=== PATIENT | male | born 1970 | race Caucasian/White ===

== ENCOUNTER → 2020-10-29 08:32 | Outpatient (CLI) | payer OTHER, SELFPAY ==
[2020-10-29] MEDS: COVID-19 VACC, Ad26(JANSSEN)/PF 0.5 ML IM (08:43)
== END ==
PROVIDERS: Visit Provider Internal Medicine
DX: Z23 Encounter for immunization (principal)
CPT/HCPCS: 0031A; 91303

== ENCOUNTER → 2022-01-06 13:52 | Outpatient (CLI) | payer OTHER, SELFPAY ==
[2022-01-06 15:10] LABS: Liquefaction Semen YES (YES); PH Semen 8 (7-8); Sperm Count 17 x10^6/mL (20-150); Volume Semen 4.5 (1.0-5.0)
[2022-01-06 15:11] LABS: Sperm Morphology 14 %ABNORM (0-30); Sperm Motility 75% % Motile
== END ==
PROVIDERS: Referring Provider Specialist; Visit Provider Specialist
DX: Z31.69 Encounter for other general counseling and advice on procreation (principal)
CPT/HCPCS: 89320

== ENCOUNTER → 2022-09-30 13:39 | Outpatient (CLI) | payer OTHER, SELFPAY ==
--- NOTE | 2022-09-30 | DI.RAD.S_ITS ---
PROCEDURE: XR CHEST 2V INDICATIONS: CHEST PAIN TECHNIQUE: 2 views of the chest were acquired. COMPARISON: None. FINDINGS: Surgical changes and devices: None. Lungs and pleura: Lungs are clear. No pleural effusions or pneumothorax. Mediastinum: Mediastinal contours are normal. Heart size is normal. Bones and chest wall: No suspicious bony abnormalities. Soft tissues appear unremarkable. IMPRESSION: No acute cardiopulmonary disease. Dictated by: Milana Kaplan M.D. on 09/30/2022 at 22:51 Approved by: Milana Kaplan M.D. on 09/30/2022 at 22:52
== END ==
PROVIDERS: PCP Internal Medicine; Referring Provider Internal Medicine; Visit Provider Internal Medicine
DX: R07.9 Chest pain, unspecified (principal)
CPT/HCPCS: 71046

== ENCOUNTER → 2022-10-05 07:24 | Outpatient (CLI) | payer OTHER, SELFPAY ==
--- NOTE | 2022-10-06 18:17 | DI.NM.S_ITS ---
DATE OF SERVICE: 10/05/2022 PROCEDURE: Exercise perfusion study INDICATIONS: Chest pain, hyperlipidemia. RADIOPHARMACEUTICAL: 25.5 mCi technetium-99m Myoview IV was injected at stress and 25.7 mCi technetium-99m Myoview IV was injected at rest. CARDIAC STRESS: The patient underwent exercise perfusion study under the supervision of an attending staff. The patient walked on Jayesh protocol for 9 minutes and 31 seconds, achieved 101 percent of target heart rate with maximum heart rate of 172 beats per minute. Normal blood pressure response. Resting blood pressure 106/80 mmHg. Peak blood pressure 142/72 mmHg. Achieved 10.1 METs of workload. DYLAN +9 percent. Baseline rhythm sinus. During stress, no convincing ischemic changes seen. Rare PVCs. No chest pain. The patient felt dyspnea and fatigue. RAW DATA: There is increased subdiaphragmatic activity. The patient's weight is 220 pounds. GATED STUDY: Stress LV ejection fraction is 74 percent without any obvious wall motion abnormalities. Resting end-diastolic volume 115 mL. TID ratio 0.71, which is within normal limits. Lung/heart ratio 0.33, which is within normal limits. MYOCARDIAL PERFUSION SCAN: Stress supine images and resting supine images revealed small-sized, mildly decreased perfusion of base to mid inferior wall, which got completely resolved during prone images suggestive of tissue attenuation artifact. CONCLUSION: This is a normal myocardial perfusion study with evidence of tissue attenuation artifact, like diaphragmatic tissue attenuation artifact, which got resolved during prone images. Walked on Jayesh protocol for 9 minutes and 31 seconds. Normal hemodynamic response. Achieved 10.2 metabolic equivalents of workload. No significant arrhythmias. No chest pain. Overall low-risk exercise perfusion study. River Lopez - CHRIS/romina/SOFYA doc#: [id number]/job#: [id number] dd: 10/06/2022 17:14:00 dt: 10/06/2022 18:00:00 DICTATING MD/COPIES TO: Casi Trujillo MD COPIES MNE: BROOK;
== END ==
PROVIDERS: PCP Internal Medicine; Referring Provider Internal Medicine; Visit Provider Internal Medicine
DX: R07.9 Chest pain, unspecified (principal); E78.5 Hyperlipidemia, unspecified
CPT/HCPCS: 78452; 93017; A9502